=== PATIENT | female | born 1995 | race Caucasian/White ===

== ENCOUNTER → 2016-11-07 | Outpatient (REF) | payer OTHER | LOC: M LAB REF 16:49 | PROVIDERS: ATTEND Advanced Practice Midwife | DX: Z34.83 Encounter for supervision of other normal pregnancy, third trimester (principal) ==

== ENCOUNTER 2016-11-30 22:00 | Outpatient (CLI) | payer OTHER ==
[2016-11-30] MEDS ORDERED: PRENTAB55 PO (22:34)
== END 2016-11-30 22:45 | disposition home or self-care (01) ==
LOC: M LDO 22:00
PROVIDERS: ATTEND Advanced Practice Midwife
DX: O26.893 Other specified pregnancy related conditions, third trimester (principal); M54.30 Sciatica, unspecified side; Z3A.39 39 weeks gestation of pregnancy

== ENCOUNTER 2016-12-06 03:28 | Inpatient (IN) | payer OTHER ==
[~2016-12-06] VITALS: Ht 160 cm; Wt 80.0 kg
[2016-12-06] VITALS (27 sets, daily range): BP systolic 98–137; BP diastolic 53–91
[~2016-12-06 03:28] MED LIST: PRENTAB55 PO
[2016-12-06] MEDS ORDERED: LACTATED RINGER'S 1000 ML IV STA (04:12)
[2016-12-06] MEDS ORDERED: LR 1,000 ML IV SCH (04:12)
[2016-12-06 04:36] LABS: MEAN CORPUSCULAR HEMOGLOBIN 29.5 pg (27.0-33.0); MEAN CORPUSCULAR HGB CONC 34.5 g/dl (32.0-36.5); MEAN CORPUSCULAR VOLUME 85.5 fl (80.0-96.0); RED CELL DISTRIBUTION WIDTH 12.9 % (11.5-14.5)
[2016-12-06] MEDS ORDERED: FENTANYL 2MCG/ML ROPIVACAINE 0.2% NACL 250 ML CADD As Ordered ONE (04:53)
--- NOTE | 2016-12-06 05:22 | HPE ---
DATE OF ADMISSION: 12/06/2016 HISTORY: 21-year-old, (G) 1, para (P) 0 female at 40-5/7 weeks gestation by 9-week ultrasound, estimated date of confinement (EDC) of 12/01/2016, presents with regular contractions every 3-4 minutes for the last several hours. The contractions have increased in intensity. There is no vaginal bleeding or loss of fluid. COURSE: The patient initiated care at 11 weeks gestation on 05/02/2016. Her first trimester blood pressure was 120/70. Weight was 131 pounds. course was unremarkable. MEDICAL HISTORY: Unremarkable. SURGICAL HISTORY: Tonsils and adenoids. ALLERGIES: No known drug allergies. SOCIAL HISTORY: The father of the baby is involved. The patient denies cigarettes, alcohol or drug use. She lives in [place], [place]. FAMILY HISTORY: Noncontributory. PHYSICAL EXAMINATION: VITAL SIGNS: Blood pressure 130/78, weight 181 pounds. She appears uncomfortable. HEAD/NECK: Examination is normal. LUNGS: Clear to auscultation. HEART: Regular rate and rhythm. ABDOMEN: Nontender. Gravid. heart tones category 1. STERILE VAGINAL EXAMINATION: 3 cm, 100% effaced, -2 station anterior vertex, soft. Contractions every 3-6 minutes. EXTREMITIES: Nontender. LABORATORIES: Blood type is AB negative. Rubella immune. RPR nonreactive. Hepatitis B and C negative. HIV negative. Diabetes screen 125. Group B Streptococcus (GBS) negative on 11/07/2016. ASSESSMENT: 21-year-old (G) 1 at 40-5/7 weeks gestation presents in early labor. Patient is admitted on 12/06/2016.
[2016-12-06] MEDS ORDERED: OXYTOCIN DRIP 30 UNITS in APPROPRIATE DILUENT 1 EA IV SCH (06:30)
[2016-12-06] MEDS ORDERED: diphenhydrAMINE INJ 50MG/ML VIAL (J1200) IV PRN (07:15)
[2016-12-06] MEDS ORDERED: FENTANYL/ROPIVACAINE/NACL CADD 250 ML EPIDURAL SCH (07:15)
[2016-12-06] MEDS ORDERED: NALOXONE INJ 0.4 MG/1 ML VIAL (J2310) IV PRN (07:15)
[2016-12-06] MEDS ORDERED: LACTATED RINGER'S 1000 ML IV PRN (07:15)
[2016-12-06] MEDS ORDERED: ONDANSETRON 4MG/2ML VIAL (J2405) IV PRN ×2 (07:15→17:45)
[2016-12-06] MEDS ORDERED: EPIDURAL/PCA KEYS XX PRN (07:15)
[2016-12-06] MEDS ORDERED: EPIDURAL COMMENT XX SCH (07:15)
[2016-12-06] MEDS ORDERED: ePHEDrine SULFATE 25 MG/5 ML(5MG/ML) SYRINGE IV PRN (07:15)
[2016-12-06] MEDS ORDERED: REFRIGERATOR IV KEYS XX PRN (07:15)
[2016-12-06 17:27] LABS: CORD GAS ABE V -4.2; CORD GAS HCO3 V 20.4 MEQ/L; CORD GAS O2 SAT V 76.1 %; CORD GAS PCO2 V 36.5 mmHg; CORD GAS PH V 7.366 UNITS; CORD GAS PO2 V 33.4 mmHg; CORD GAS SBC V 20.5 MEQ/L; CORD GAS TCO2 V 21.6 MEQ/L
[2016-12-06 17:29] LABS: CORD GAS ABE A -7.1; CORD GAS HCO3 A 21.5 MEQ/L; CORD GAS O2 SAT A 18.1 %; CORD GAS PCO2 A 55.4 mmHg; CORD GAS PH A 7.207 UNITS; CORD GAS PO2 A 14.2 mmHg; CORD GAS TCO2 A 23.2 MEQ/L
[2016-12-06] MEDS ORDERED: RHOGAM 300 MCG (1500 IU) INJ (J2790) IM SCH (17:45)
[2016-12-06] MEDS ORDERED: MEASLES,MUMPS,RUBELLA VACCINE INJ (MMR-II) (90707) SC SCH (17:45)
[2016-12-06] MEDS ORDERED: DIBUCAINE 1% OINTMENT 30GM TOP PRN (17:45)
[2016-12-06] MEDS ORDERED: OXYTOCIN DRIP 30 UNITS in APPROPRIATE DILUENT 1 EA IV ONE (17:45)
[2016-12-06] MEDS ORDERED: ACETAMINOPHEN 500 MG TAB PO PRN (17:45)
[2016-12-06] MEDS ORDERED: DOCUSATE SODIUM 100 MG CAP PO PRN (17:45)
[2016-12-06] MEDS ORDERED: METHYLERGONOVINE MALEATE 0.2 MG TAB PO PRN (17:45)
[2016-12-06] MEDS: IBUPROFEN 800 MG TAB PO PRN (18:27)
[2016-12-07 05:35] VITALS: BP 116/71
[2016-12-07] MEDS: PRENATAL VITAMIN TAB PO SCH (07:31)
[2016-12-07] MEDS: IBUPROFEN 800 MG TAB PO PRN ×2 (07:32→17:41)
--- NOTE | 2016-12-07 09:02 | DN ---
DATE OF DELIVERY: 12/06/2016 PREDELIVERY DIAGNOSIS: Term , labor. POSTDELIVERY DIAGNOSIS: Term , labor. OPERATIVE PROCEDURE: Spontaneous vaginal delivery. CLOTH NEUTRALIZER: Maurice Plunkett MD ANESTHESIA: Epidural. ESTIMATED BLOOD LOSS: 300 mL. FINDINGS: 6 pound 14 ounce, 3114 gram female infant, Apgars 3, 5 and 5. Arterial blood gas 7.20. Base excess is -7.1. Venous blood gas 7.36. Base excess -4.2. DELIVERY SUMMARY: After 50 minute second phase, the patient had a spontaneous delivery of a 6 pound 14 ounce female infant under epidural anesthesia. There was an extremely tight nuchal cord which had to be clamped and cut on the perineum. The shoulders delivered spontaneously with ease. The was handed to the mother. The cord was doubly clamped and cut. Placenta delivered spontaneously and appeared to be intact. The patient received IV pitocin immediately after delivery of the placenta. A first degree perineal laceration was repaired with #3-0 chromic in the usual fashion. Sponge and needle counts were correct.
[2016-12-07 18:00] VITALS: BP 129/62
[2016-12-08 06:00] VITALS: BP 109/57
[2016-12-08] MEDS ORDERED: TYLE500T78 PO (08:06)
[2016-12-08] MEDS ORDERED: MOTR200T44 PO (08:06)
[2016-12-08] MEDS: PRENATAL VITAMIN TAB PO SCH (08:17)
[2016-12-08] MEDS: IBUPROFEN 800 MG TAB PO PRN (08:18)
== END 2016-12-08 12:50 | disposition home or self-care (01) | DRG 775 ==
LOC: M LDO 03:28 → M LDI 04:05 → M OBS 19:15
PROVIDERS: ADMIT Specialist; ATTEND Specialist
PROC: 10E0XZZ Delivery of Products of Conception, External Approach (ICD-10-PCS; principal; 2016-12-06)
PROC: 0HQ9XZZ Repair Perineum Skin, External Approach (ICD-10-PCS; 2016-12-06)
DX: O48.0 Post-term pregnancy (principal); Z37.0 Single live birth; Z3A.40 40 weeks gestation of pregnancy; O69.89X0 Labor and delivery complicated by other cord complications, not applicable or unspecified; O70.0 First degree perineal laceration during delivery

== ENCOUNTER → 2017-06-09 | Outpatient (CLI) | payer OTHER ==
[~2017-06-09] MED LIST changes: +MOTR200T44 PO; +TYLE500T78 PO
== END ==
LOC: M WUC 17:23
PROVIDERS: ATTEND Advanced Practice Midwife
DX: N91.1 Secondary amenorrhea (principal)

== ENCOUNTER → 2018-06-05 | Outpatient (CLI) | payer BC, OTHER ==
[2018-06-05 16:39] LABS: EOS # 0.2 10^3/uL (0.0-0.50); EOS % 4.1 % (0.0-3.0); HEMATOCRIT 41.9 % (36.0-47.0); HEMOGLOBIN 14.2 g/dl (12.0-15.5); IMMATURE GRANULOCYTE % 0.2 % (0-3.0); LYMPH # 1.9 10^3/uL (1.5-6.5); LYMPH % 46.9 % (24.0-44.0); MEAN CORPUSCULAR HEMOGLOBIN 29.5 pg (27.0-33.0); MEAN CORPUSCULAR HGB CONC 33.9 g/dl (32.0-36.5); MEAN CORPUSCULAR VOLUME 87.1 fl (80.0-96.0); MONO # 0.3 10^3/uL (0.0-0.8); MONO % 7.5 % (0.0-5.0); NEUTROPHILS # 1.7 10^3/uL (1.8-7.7); NEUTROPHILS % 40.3 % (36.0-66.0); PLATELET COUNT, AUTOMATED 271 10^3/uL (150-450); RED BLOOD COUNT 4.81 10^6/uL (4.00-5.40); RED CELL DISTRIBUTION WIDTH 12.3 % (11.5-14.5); WHITE BLOOD COUNT 4.1 10^3/uL (4.0-10.0)
[2018-06-05 17:13] LABS: ALBUMIN 4.1 GM/DL (3.2-5.2); ALBUMIN/GLOBULIN RATIO 1.24 (1.00-1.93); ALKALINE PHOSPHATASE 77 U/L (45-117); ALT/SGPT 55 U/L (12-78); ANION GAP 8 MEQ/L (8-16); AST/SGOT 28 U/L (7-37); BILIRUBIN,TOTAL 0.7 MG/DL (0.2-1.0); BLOOD UREA NITROGEN 12 MG/DL (7-18); CALCIUM LEVEL 8.7 MG/DL (8.5-10.1); CARBON DIOXIDE LEVEL 25 MEQ/L (21-32); CHLORIDE LEVEL 111 MEQ/L (98-107); CHOLESTEROL LEVEL 153 MG/DL (<200); CHOLESTEROL RISK RATIO 4.135 (<5); GLOMERULAR FILTRATION RATE > 60.0 (>60); GLUCOSE, FASTING 81 MG/DL (70-100); HDL CHOLESTEROL 37 MG/DL (>40); LDL CHOLESTEROL 92.4 MG/DL (<100); NON-HDL-C 116 MG/DL; POTASSIUM SERUM 3.9 MEQ/L (3.5-5.1); SODIUM LEVEL 144 MEQ/L (136-145); THYROID STIMULATING HORMONE 0.939 uIU/ML (0.358-3.740); TOTAL PROTEIN 7.4 GM/DL (6.4-8.2); TRIGLYCERIDES LEVEL 118 MG/DL (<150)
== END ==
LOC: M WUC 09:00
DX: R21 Rash and other nonspecific skin eruption (principal); Z13.6 Encounter for screening for cardiovascular disorders; R07.9 Chest pain, unspecified
CPT/HCPCS: 84443

== ENCOUNTER → 2018-07-13 | Outpatient (REF) | payer BC, OTHER | LOC: M LAB REF 18:50 | DX: L87.0 Keratosis follicularis et parafollicularis in cutem penetrans (principal) | CPT/HCPCS: 88300 ==

== ENCOUNTER → 2018-07-29 | Outpatient (REF) | payer OTHER | LOC: M SFHCPLAZ 14:01 | DX: R21 Rash and other nonspecific skin eruption (principal) ==

== ENCOUNTER 2018-11-23 11:56 | Emergency (ER) | payer BC, OTHER ==
[~2018-11-23] VITALS: Ht 160 cm; Wt 68.2 kg
[2018-11-23] MEDS ORDERED: KETOROLAC 30 MG/ML VIAL (J1885) IV ONE (12:30)
[2018-11-23] MEDS ORDERED: ONDANSETRON 4MG/2ML VIAL (J2405) IV ONE (12:30)
[2018-11-23 12:34] LABS: BASO % 0.3 % (0.0-1.0); EOS # 0.1 10^3/uL (0.0-0.50); HEMATOCRIT 43.9 % (36.0-47.0); HEMOGLOBIN 15.4 g/dl (12.0-15.5); LYMPH % 13.8 % (24.0-44.0); MEAN CORPUSCULAR HEMOGLOBIN 30.1 pg (27.0-33.0); MEAN CORPUSCULAR HGB CONC 35.1 g/dl (32.0-36.5); MEAN CORPUSCULAR VOLUME 85.7 fl (80.0-96.0); MONO # 0.5 10^3/uL (0.0-0.8); MONO % 7.1 % (0.0-5.0); NEUTROPHILS # 5.5 10^3/uL (1.8-7.7); NEUTROPHILS % 76.7 % (36.0-66.0); PLATELET COUNT, AUTOMATED 296 10^3/uL (150-450); RED BLOOD COUNT 5.12 10^6/uL (4.00-5.40); WHITE BLOOD COUNT 7.2 10^3/uL (4.0-10.0)
[2018-11-23 13:01] LABS: ALBUMIN 4.5 GM/DL (3.2-5.2); ALT/SGPT 46 U/L (12-78); BILIRUBIN,DIRECT 0.2 MG/DL (0.0-0.2); BILIRUBIN,TOTAL 0.9 MG/DL (0.2-1.0); BLOOD UREA NITROGEN 15 MG/DL (7-18); CALCIUM LEVEL 8.5 MG/DL (8.5-10.1); CARBON DIOXIDE LEVEL 26 MEQ/L (21-32); CHLORIDE LEVEL 105 MEQ/L (98-107); GLOMERULAR FILTRATION RATE > 60.0 (>60); GLUCOSE, FASTING 85 MG/DL (70-100); LIPASE 88 U/L (73-393); POTASSIUM SERUM 3.7 MEQ/L (3.5-5.1); SODIUM LEVEL 138 MEQ/L (136-145); TOTAL PROTEIN 7.7 GM/DL (6.4-8.2)
[2018-11-23] MEDS ORDERED: ONDA4TAB6 PO (14:12)
[2018-11-23] MEDS ORDERED: PEPC1TAB5 PO (14:12)
[2018-11-23] MEDS ORDERED: NS 500 ML IV ONE (14:15)
[2018-11-23] MEDS ORDERED: FAMOTIDINE 20 MG TAB PO ONE (14:15)
[2018-11-23 15:25] VITALS: BP 99/62
== END 2018-11-23 15:32 | disposition home or self-care (01) ==
LOC: M ED 11:56
DX: R19.7 Diarrhea, unspecified (principal); R10.9 Unspecified abdominal pain
CPT/HCPCS: 80048; 80076; 81001; 81025; 83690; 85025; 99284; J1885; J2405

== ENCOUNTER → 2019-05-12 | Outpatient (REF) | payer OTHER ==
[~2019-05-12] MED LIST changes: +ONDA4TAB6 PO; +PEPC1TAB5 PO
[2019-05-12 13:06] LABS: HEMATOCRIT 39.7 % (36.0-47.0); MEAN CORPUSCULAR HEMOGLOBIN 30.4 pg (27.0-33.0); MEAN CORPUSCULAR HGB CONC 35.3 g/dl (32.0-36.5); MEAN CORPUSCULAR VOLUME 86.1 fl (80.0-96.0); PLATELET COUNT, AUTOMATED 316 10^3/uL (150-450); RED BLOOD COUNT 4.61 10^6/uL (4.00-5.40)
[2019-05-12 13:16] LABS: HCG, SERUM QUANTITATIVE 90 MIU/ML
[2019-05-13 10:08] LABS: RUBELLA IgG QUALITATIVE IMMUNE (IMMUNE)
[2019-05-13 10:38] LABS: HEPATITIS C VIRUS ABY INDEX 0.1 INDEX (<0.8); HIV 1&2 SCREEN CENTAUR NEGATIVE (NEGATIVE)
== END ==
LOC: M LAB REF 12:39
PROVIDERS: ATTEND Obstetrics & Gynecology
DX: Z32.01 Encounter for pregnancy test, result positive (principal); O36.80X0 Pregnancy with inconclusive fetal viability, not applicable or unspecified

== ENCOUNTER → 2019-05-19 | Outpatient (REF) | payer OTHER | LOC: M LAB REF 17:24 | PROVIDERS: ATTEND Nurse Practitioner Women's Health | DX: O02.1 Missed abortion (principal) ==

== ENCOUNTER → 2020-07-30 | Outpatient (REF) | payer OTHER ==
[2020-07-31 12:34] LABS: BASO % 0.5 % (0.0-1.0); EOS # 0.4 10^3/uL (0.0-0.5); EOS % 5.7 % (0.0-3.0); HEMATOCRIT 40.5 % (36.0-47.0); HEMOGLOBIN 13.8 g/dl (12.0-15.5); LYMPH # 2.4 10^3/uL (1.5-5.0); LYMPH % 31.8 % (24.0-44.0); MEAN CORPUSCULAR HEMOGLOBIN 30.1 pg (27.0-33.0); MEAN CORPUSCULAR HGB CONC 34.1 g/dl (32.0-36.5); MEAN CORPUSCULAR VOLUME 88.4 fl (80.0-96.0); MONO # 0.5 10^3/uL (0.0-0.8); MONO % 6.7 % (0.0-5.0); NEUTROPHILS # 4.1 10^3/uL (1.5-8.5); PLATELET COUNT, AUTOMATED 337 10^3/uL (150-450); RED BLOOD COUNT 4.58 10^6/uL (4.00-5.40); WHITE BLOOD COUNT 7.4 10^3/uL (4.0-10.0)
[2020-07-31 12:39] LABS: ALT/SGPT 32 U/L (12-78); BILIRUBIN,TOTAL 0.4 MG/DL (0.2-1.0); BLOOD UREA NITROGEN 11 MG/DL (7-18); CALCIUM LEVEL 9.2 MG/DL (8.5-10.1); CARBON DIOXIDE LEVEL 27 MEQ/L (21-32); CHLORIDE LEVEL 105 MEQ/L (98-107); CREATININE FOR GFR 0.68 MG/DL (0.55-1.30); GLOMERULAR FILTRATION RATE > 60.0 (>60); GLUCOSE, FASTING 98 MG/DL (70-100); POTASSIUM SERUM 3.8 MEQ/L (3.5-5.1); SODIUM LEVEL 139 MEQ/L (136-145); TOTAL PROTEIN 7.6 GM/DL (6.4-8.2)
[2020-07-31 12:51] LABS: HCG, SERUM QUALITATIVE NEGATIVE (NEGATIVE)
== END ==
LOC: M SFHCCLAY 15:27
PROVIDERS: ATTEND Physician Assistant
DX: N91.2 Amenorrhea, unspecified (principal); R63.5 Abnormal weight gain

== ENCOUNTER 2020-09-26 15:55 | Emergency (ER) | payer BC, OTHER ==
[~2020-09-26] VITALS: Ht 160 cm; Wt 72.9 kg
[2020-09-26 16:54] LABS: BLOOD UREA NITROGEN 14 MG/DL (7-18); CALCIUM LEVEL 9.6 MG/DL (8.5-10.1); CARBON DIOXIDE LEVEL 28 MEQ/L (21-32); CHLORIDE LEVEL 106 MEQ/L (98-107); CREATININE FOR GFR 0.61 MG/DL (0.55-1.30); GLOMERULAR FILTRATION RATE > 60.0 (>60); GLUCOSE, FASTING 89 MG/DL (70-100); POTASSIUM SERUM 3.8 MEQ/L (3.5-5.1); SODIUM LEVEL 139 MEQ/L (136-145)
[2020-09-26 17:18] LABS: HCG, SERUM QUALITATIVE NEGATIVE (NEGATIVE)
[2020-09-26] MEDS ORDERED: KETOROLAC 60MG 2ML VIAL IM ONE (17:30)
--- NOTE | 2020-09-26 18:21 | REP ---
INDICATION: CP COMPARISON: 06/05/2018. TECHNIQUE: PA/Lateral FINDINGS: Lungs: Clear, no infiltrate. Heart: Normal in size. Mediastinum: Mediastinal silhouette unremarkable. Pleural angles: Unremarkable.. Bones and soft tissues: Unremarkable. IMPRESSION: No acute pulmonary disease. <Electronically signed by Ari Rueda > 09/26/20 [id number]
[2020-09-26 18:30] VITALS: BP 104/68
--- NOTE | 2020-09-27 13:26 | ECGEPIP ---
[facility] - ED Test Date: 2020-09-26 Pat Name: SUSIE COTTON Department: Room: - Gender: Female Procurement Consultant: jemal : 1995 Requested By: Kim Sierra Order Number: [id number] Reading MD: Steffen Masters Measurements Intervals [place] Rate: 75 P: 44 VT: 145 QRS: 72 QRSD: 97 T: 65 QT: 367 QTc: 410 Interpretive Statements SINUS RHYTHM BENIGN EARLY REPOLARIZATION SIMILAR TO 09/27/16 Electronically Signed on 09-27-2020 13:25:57 EST by Steffen Masters
== END 2020-09-26 18:37 | disposition home or self-care (01) ==
LOC: M ED 15:55
DX: R07.9 Chest pain, unspecified (principal)
CPT/HCPCS: 71046; 80048; 84703; 85379; 85652; 93005; 96372; 99284; J1885

== ENCOUNTER → 2020-10-22 | Outpatient (CLI) | payer BC, OTHER ==
--- NOTE | 2020-10-22 16:23 | REP ---
INDICATION: PELVIC AND PERINEAL PAIN COMPARISON: None. TECHNIQUE: Transabdominal pelvic ultrasound followed by transvaginal examination for better evaluation of the endometrium and adnexa with color Doppler evaluation of the ovaries. FINDINGS: Bladder is unremarkable and measures 10.3 x 12.2 x 8.4 cm. Normal anteverted uterus measures 8.2 x 3.5 x 4.7 cm. The endometrial complex measures 6.0 mm thickness. 3 mm echogenic focus within the endometrium is nonspecific and may represent small chronic calcification or polyp. Bilateral ovaries are normal in appearance and vascularity without evidence for torsion. Right ovary measures 2.7 x 2.0 x 1.9 cm; R I = 0.37. Left ovary measures 2.8 x 1.1 x 1.5 cm; R I = 0.44. No pelvic fluid or adnexal mass lesion. IMPRESSION: 3 mm nonspecific echogenic focus within the endometrium. Otherwise normal pelvic ultrasound. <Electronically signed by Lavon Pierce > 10/22/20 [id number]
== END ==
LOC: M RAD 15:28
PROVIDERS: ATTEND Obstetrics & Gynecology
DX: R10.2 Pelvic and perineal pain (principal)

== ENCOUNTER → 2020-12-03 | Outpatient (REF) | payer OTHER ==
[2020-12-03 18:07] LABS: ALBUMIN 4.4 GM/DL (3.2-5.2); ALT/SGPT 51 U/L (12-78); BILIRUBIN,TOTAL 0.3 MG/DL (0.2-1.0); BLOOD UREA NITROGEN 15 MG/DL (7-18); CALCIUM LEVEL 8.8 MG/DL (8.5-10.1); CARBON DIOXIDE LEVEL 29 MEQ/L (21-32); CHLORIDE LEVEL 104 MEQ/L (98-107); CREATININE FOR GFR 0.65 MG/DL (0.55-1.30); GLOMERULAR FILTRATION RATE > 60.0 (>60); GLUCOSE, FASTING 91 MG/DL (70-100); SODIUM LEVEL 140 MEQ/L (136-145); TOTAL PROTEIN 7.7 GM/DL (6.4-8.2); VITAMIN B12 LEVEL 445 PG/ML (247-911)
== END ==
LOC: M SFHCCLAY 13:29
PROVIDERS: ATTEND Physician Assistant
DX: R20.0 Anesthesia of skin (principal)

== ENCOUNTER → 2020-12-19 | Outpatient (CLI) | payer BC ==
--- NOTE | 2020-12-19 15:21 | REP ---
INDICATION: M54.5 LOW [place] PAIN W/RADIATION LEFT COMPARISON: None. TECHNIQUE: AP, lateral, bilateral oblique, and coned-down views of the lumbar spine. FINDINGS: Alignment and lordosis maintained. Vertebral bodies are intact. Disc spaces are relatively normal/age-appropriate. No acute fracture/compression injury or subluxation. No obvious spondylolysis or spondylolisthesis.. IMPRESSION: Normal Lumbosacral Spine series. <Electronically signed by Lavon Pierce > 12/19/20 [id number]
== END ==
LOC: M CLY 14:57
PROVIDERS: ATTEND Physician Assistant
DX: M54.42 Lumbago with sciatica, left side (principal)

== ENCOUNTER → 2021-01-03 | Outpatient (REF) | payer OTHER ==
[2021-01-03 17:35] LABS: HCG, SERUM QUALITATIVE NEGATIVE (NEGATIVE)
[2021-01-03 17:41] LABS: FREE T4 0.96 NG/DL (0.76-1.46)
== END ==
LOC: M PLALAB 14:09
PROVIDERS: ATTEND Advanced Practice Midwife
DX: N91.2 Amenorrhea, unspecified (principal)

== ENCOUNTER → 2021-03-21 | Outpatient (REF) | payer OTHER ==
[2021-03-21 15:59] LABS: HCG, SERUM QUALITATIVE NEGATIVE (NEGATIVE)
[2021-03-21 16:12] LABS: FREE T4 0.89 NG/DL (0.76-1.46); THYROID STIMULATING HORMONE 0.993 uIU/ML (0.358-3.740)
== END ==
LOC: M PLALAB 11:39
PROVIDERS: ATTEND Advanced Practice Midwife
DX: Z31.9 Encounter for procreative management, unspecified (principal); N92.6 Irregular menstruation, unspecified

== ENCOUNTER → 2021-04-01 | Outpatient (REF) | payer OTHER | LOC: M SFHCCAPE 15:47 | PROVIDERS: ATTEND Physician Assistant | DX: M54.5 Low back pain (principal) ==

== ENCOUNTER → 2021-04-04 | Outpatient (CLI) | payer OTHER ==
[2021-04-04 21:59] LABS: FOLLICLE STIMULATING HORMONE 5.2 mIU/mL; LUTEINIZING HORMONE 7.7 mIU/mL
== END ==
LOC: M WUC 15:45
PROVIDERS: ATTEND Advanced Practice Midwife
DX: Z31.9 Encounter for procreative management, unspecified (principal)

== ENCOUNTER → 2021-04-12 | Outpatient (REF) | payer OTHER ==
[2021-04-12 12:22] LABS: PROGESTERONE 0.46 NG/ML; PROLACTIN 6.6 NG/ML
== END ==
LOC: M PLALAB 07:05
PROVIDERS: ATTEND Advanced Practice Midwife
DX: Z31.9 Encounter for procreative management, unspecified (principal)

== ENCOUNTER → 2021-05-29 | Outpatient (CLI) | payer BC, OTHER ==
[~2021-05-29] MED LIST changes: +ISOVUE-370 76% 100ML VIAL As Ordered ONE
--- NOTE | 2021-05-29 16:36 | REP ---
INDICATION: INFERTILITY. COMPARISON: None. TECHNIQUE: The endometrium was cannulated and contrast was injected by the attending roof cement and paint maker Dr. Bojra. Fluoroscopic spot films were acquired by Luz Maria Recinos [facility], under the direct supervision of Dr. Rueda. Images reviewed prior to dictation with Dr. Rueda. FINDINGS: Fluoroscopy spot radiographs document filling of a normal endometrial cavity. There is a mild arcuate appearance to the uterus. There is normal isthmic and ampullary fallopian tube opacification, and bilateral tubal patency was documented. IMPRESSION: Accurate uterus with bilateral tubal patency documented. 0.9 minutes of fluoroscopy time was utilized for this procedure. Some fluoroscopic images are performed with last image hold technology. These images require no additional radiation. <Electronically signed by Luz Maria Recinos > 05/29/21 [id number] <Electronically signed by Ari Rueda > 05/29/21 [id number]
== END ==
LOC: M RADPRO 11:45
PROVIDERS: ATTEND Obstetrics & Gynecology
DX: N97.9 Female infertility, unspecified (principal)
CPT/HCPCS: 58340; 74740; Q9967

== ENCOUNTER → 2021-11-04 | Outpatient (REF) | payer BC, OTHER ==
[~2021-11-04] MED LIST changes: -ISOVUE-370 76% 100ML VIAL As Ordered ONE
[2021-11-04 13:38] LABS: HEMATOCRIT 43.8 % (36.0-47.0); HEMOGLOBIN 14.7 g/dl (12.0-15.5); MEAN CORPUSCULAR HGB CONC 33.6 g/dl (32.0-36.5); MEAN CORPUSCULAR VOLUME 89.4 fl (80.0-96.0); PLATELET COUNT, AUTOMATED 296 10^3/uL (150-450); WHITE BLOOD COUNT 7.6 10^3/uL (4.0-10.0)
[2021-11-04 14:20] LABS: HCG, SERUM QUANTITATIVE 92 MIU/ML; PROGESTERONE 9.76 NG/ML
[2021-11-04 14:30] LABS: HEPATITIS B SURFACE ANTIGEN NEGATIVE (NEGATIVE)
[2021-11-04 14:57] LABS: HEPATITIS C VIRUS ABY INDEX < 0.0 INDEX (<0.8)
[2021-11-04 14:58] LABS: HIV 1&2 SCREEN CENTAUR NEGATIVE (NEGATIVE)
== END ==
LOC: M LAB REF 12:18
PROVIDERS: ATTEND Advanced Practice Midwife
DX: O36.80X0 Pregnancy with inconclusive fetal viability, not applicable or unspecified (principal); Z32.01 Encounter for pregnancy test, result positive

== ENCOUNTER → 2021-12-05 | Outpatient (REF) | payer BC, OTHER | LOC: M LAB REF 16:18 | PROVIDERS: ATTEND Obstetrics & Gynecology | DX: Z34.81 Encounter for supervision of other normal pregnancy, first trimester (principal); Z36.89 Encounter for other specified antenatal screening ==

== ENCOUNTER → 2022-01-28 | Outpatient (REF) | payer BC, OTHER | LOC: M LAB REF 17:39 | PROVIDERS: ATTEND Obstetrics & Gynecology | DX: R30.0 Dysuria (principal) ==

== ENCOUNTER → 2022-04-23 | Outpatient (CLI) | payer BC, OTHER ==
[2022-04-23 10:22] LABS: HEMATOCRIT 35.1 % (36.0-47.0); HEMOGLOBIN 11.8 g/dl (12.0-15.5); MEAN CORPUSCULAR HEMOGLOBIN 30.3 pg (27.0-33.0); MEAN CORPUSCULAR HGB CONC 33.6 g/dl (32.0-36.5); MEAN CORPUSCULAR VOLUME 90.2 fl (80.0-96.0); PLATELET COUNT, AUTOMATED 286 10^3/uL (150-450); RED BLOOD COUNT 3.89 10^6/uL (4.00-5.40); WHITE BLOOD COUNT 8.3 10^3/uL (4.0-10.0)
== END ==
LOC: M LAB 07:43
PROVIDERS: ATTEND Obstetrics & Gynecology
DX: Z34.82 Encounter for supervision of other normal pregnancy, second trimester (principal)

== ENCOUNTER → 2022-05-14 | Outpatient (CLI) | payer BC, OTHER | LOC: M LAB 07:19 | PROVIDERS: ATTEND Obstetrics & Gynecology | DX: O99.810 Abnormal glucose complicating pregnancy (principal) ==

== ENCOUNTER 2022-05-23 09:28 | Outpatient (CLI) | payer BC, OTHER ==
[~2022-05-23] VITALS: Ht 160 cm; Wt 78.6 kg
[2022-05-23 09:47] VITALS: BP 94/66
[2022-05-23 15:32] LABS: BACTERIA, URINE SMALL AMOUNT; HYALINE CAST, URINE NONE SEEN /lpf (0-1); RBC, URINE NONE SEEN /hpf (0-3); SQUAMOUS EPITHELIAL CELL URINE NONE SEEN /hpf (SMALL AMT)
== END 2022-05-23 14:20 | disposition home or self-care (01) ==
LOC: M LDO 09:28
PROVIDERS: ATTEND Obstetrics & Gynecology
DX: O26.853 Spotting complicating pregnancy, third trimester (principal); O26.893 Other specified pregnancy related conditions, third trimester; R25.2 Cramp and spasm; R10.2 Pelvic and perineal pain; Z3A.32 32 weeks gestation of pregnancy
CPT/HCPCS: 59025; 81000; 87086; G0378; G0463

== ENCOUNTER → 2022-06-10 | Outpatient (REF) | payer BC, OTHER | LOC: M LAB REF 17:07 | PROVIDERS: ATTEND Obstetrics & Gynecology | DX: Z34.83 Encounter for supervision of other normal pregnancy, third trimester (principal) ==

== ENCOUNTER 2022-07-15 19:19 | Inpatient (IN) | payer BC, OTHER ==
[2022-07-15] VITALS (15 sets, daily range): BP systolic 99–135; BP diastolic 55–81
[~2022-07-15] VITALS: Ht 160 cm; Wt 82.4 kg
[2022-07-15] MEDS ORDERED: HOME MED LIST COMPLETE! XX SCH (19:55)
[2022-07-15] MEDS ORDERED: PRENTAB9 PO (19:56)
[2022-07-15] MEDS ORDERED: TUMS500C PO (19:57)
[2022-07-15 20:42] LABS: HEMATOCRIT 33.5 % (36.0-47.0); MEAN CORPUSCULAR HEMOGLOBIN 27.6 pg (27.0-33.0); MEAN CORPUSCULAR HGB CONC 32.8 g/dl (32.0-36.5); PLATELET COUNT, AUTOMATED 295 10^3/uL (150-450); RED BLOOD COUNT 3.99 10^6/uL (4.00-5.40); WHITE BLOOD COUNT 12.4 10^3/uL (4.0-10.0)
[2022-07-15] MEDS ORDERED: LIDOCAINE 1% MDV 20ML VIAL INFIL PRN (20:55)
[2022-07-15] MEDS ORDERED: TRANEXAMIC ACID INJection 1,000 MG in NS 100 ML IV PRN (20:55)
[2022-07-15] MEDS ORDERED: OXYTOCIN DRIP 30 UNITS in IV 1 EA IV PRN ×4 (20:55)
[2022-07-15] MEDS ORDERED: METHYLERGONOVINE MALEATE 0.2 MG/ML VIAL (J2210) IM PRN (20:55)
[2022-07-15] MEDS ORDERED: FENTANYL/ROPIVACAINE/NACL BAG 100 ML EPIDURAL SCH (21:30)
[2022-07-15] MEDS ORDERED: diphenhydrAMINE 50MG/ML VIAL (J1200) IV PRN (21:30)
[2022-07-15] MEDS ORDERED: ONDANSETRON 4MG 2ML VIAL IV PRN (21:30)
[2022-07-15] MEDS ORDERED: LR 500 ML IV PRN (21:30)
[2022-07-15] MEDS ORDERED: NALOXONE INJ 0.4MG/1ML VIAL (J2310 PER 1MG) IV PRN (21:30)
[2022-07-15] MEDS ORDERED: ePHEDrine SULFATE 25 MG/5 ML(5MG/ML) SYRINGE IVP PRN (21:30)
[2022-07-15] MEDS ORDERED: EPIDURAL/PCA KEYS XX PRN (21:30)
[2022-07-16] VITALS (15 sets, daily range): BP systolic 91–158; BP diastolic 51–108
[2022-07-16] MEDS ORDERED: OXYTOCIN DRIP 30 UNITS in IV 1 EA IV SCH (03:00)
[2022-07-16] MEDS ORDERED: RHOGAM 300 MCG (1500 IU) INJ (J2790) IM SCH (03:00)
[2022-07-16] MEDS ORDERED: DOCUSATE SODIUM 100MG CAPSULE PO PRN (03:00)
[2022-07-16] MEDS ORDERED: ACETAMINOPHEN 500 MG TAB PO PRN (03:00)
[2022-07-16] MEDS ORDERED: MOM 30ML SUSPENSION UDC PO PRN (03:00)
[2022-07-16] MEDS ORDERED: METHYLERGONOVINE MALEATE 0.2 MG TAB PO PRN (03:00)
[2022-07-16] MEDS ORDERED: DIBUCAINE 1% OINTMENT 30GM TOP PRN (03:00)
[2022-07-16] MEDS ORDERED: ANUSOL HC CREAM 30GM TOP PRN (03:00)
[2022-07-16] MEDS ORDERED: IBUPROFEN 600MG TAB PO PRN (03:00)
[2022-07-16] MEDS ORDERED: ACETAMINOPHEN TAB 650MG DOSE (2X325MG) PO PRN (03:00)
[2022-07-16] MEDS: PRENATAL VITAMINS CHEWABLE TABLET PO SCH (08:05)
[2022-07-16] MEDS: IBUPROFEN 800 MG TAB PO PRN (08:05)
[2022-07-17 06:00] VITALS: BP 100/65
[2022-07-17] MEDS: IBUPROFEN 800 MG TAB PO PRN (06:36)
[2022-07-17] MEDS: PRENATAL VITAMINS CHEWABLE TABLET PO SCH (08:00)
[2022-07-17] MEDS ORDERED: ACET-683 PO (11:55)
[2022-07-17] MEDS ORDERED: IBUP80TA PO (11:55)
[2022-07-18] MEDS ORDERED: MEASLES,MUMPS,RUBELLA VACCINE INJ (MMR-II) (90707) SC.IMMUN ONE (09:00)
== END 2022-07-17 12:39 | disposition home or self-care (01) | DRG 560 ==
LOC: M LDO 19:19 → M LDI 20:19 → M OBS 07-16 04:44
PROVIDERS: ADMIT Obstetrics & Gynecology; ATTEND Obstetrics & Gynecology
PROC: 10E0XZZ Delivery of Products of Conception, External Approach (ICD-10-PCS; principal; 2022-07-16)
DX: O48.0 Post-term pregnancy (principal); Z3A.40 40 weeks gestation of pregnancy; Z37.0 Single live birth; O77.0 Labor and delivery complicated by meconium in amniotic fluid

== ENCOUNTER → 2022-11-25 | Outpatient (REF) | payer BC, OTHER ==
[~2022-11-25] MED LIST changes: +ACET-683 PO; +IBUP80TA PO; +PRENTAB9 PO; +TUMS500C PO
[2022-11-25 12:50] LABS: HEMATOCRIT 38.4 % (36.0-47.0); HEMOGLOBIN 13.3 g/dl (12.0-15.5); MEAN CORPUSCULAR HEMOGLOBIN 29.9 pg (27.0-33.0); MEAN CORPUSCULAR HGB CONC 34.6 g/dl (32.0-36.5); MEAN CORPUSCULAR VOLUME 86.3 fl (80.0-96.0); PLATELET COUNT, AUTOMATED 273 10^3/uL (150-450); RED BLOOD COUNT 4.45 10^6/uL (4.00-5.40); WHITE BLOOD COUNT 5.5 10^3/uL (4.0-10.0)
[2022-11-25 13:40] LABS: HEPATITIS B SURFACE ANTIGEN NEGATIVE (NEGATIVE)
[2022-11-25 13:53] LABS: HIV 1&2 SCREEN CENTAUR NEGATIVE (NEGATIVE)
== END ==
LOC: M LAB REF 11:24
PROVIDERS: ATTEND Obstetrics & Gynecology
DX: O36.80X0 Pregnancy with inconclusive fetal viability, not applicable or unspecified (principal); Z32.01 Encounter for pregnancy test, result positive

== ENCOUNTER → 2022-12-10 | Outpatient (CLI) | payer BC, OTHER | LOC: M WHC 14:47 | PROVIDERS: ATTEND Obstetrics & Gynecology | DX: O36.80X0 Pregnancy with inconclusive fetal viability, not applicable or unspecified (principal); Z3A.01 Less than 8 weeks gestation of pregnancy; O20.8 Other hemorrhage in early pregnancy ==

== ENCOUNTER → 2022-12-26 | Outpatient (REF) | payer BC, OTHER | LOC: M LAB REF 12:05 | PROVIDERS: ATTEND Obstetrics & Gynecology | DX: O03.4 Incomplete spontaneous abortion without complication (principal) ==

== ENCOUNTER → 2023-01-02 | Outpatient (REF) | payer OTHER, BC | LOC: M LAB REF 12:13 | PROVIDERS: ATTEND Obstetrics & Gynecology | DX: O03.4 Incomplete spontaneous abortion without complication (principal) ==

== ENCOUNTER → 2023-01-09 | Outpatient (REF) | payer OTHER, BC | LOC: M LAB REF 15:17 | PROVIDERS: ATTEND Obstetrics & Gynecology | DX: O03.4 Incomplete spontaneous abortion without complication (principal) ==

== ENCOUNTER → 2023-03-23 | Outpatient (REF) | payer OTHER, BC | LOC: M LAB REF 12:18 | PROVIDERS: ATTEND Obstetrics & Gynecology | DX: N91.2 Amenorrhea, unspecified (principal) ==

== ENCOUNTER → 2023-04-07 | Outpatient (CLI) | payer BC, OTHER ==
[2023-04-07 14:19] LABS: FOLLICLE STIMULATING HORMONE 4.4 mIU/ML; FREE T4 1.17 NG/DL (0.89-1.76); LUTEINIZING HORMONE 13.9 mIU/ML; THYROID STIMULATING HORMONE 1.31 uIU/ML (0.55-4.78)
== END ==
LOC: M RAD 12:33
PROVIDERS: ATTEND Obstetrics & Gynecology
DX: N91.2 Amenorrhea, unspecified (principal)

== ENCOUNTER → 2023-05-12 | Outpatient (CLI) | payer BC | LOC: M CLY 14:12 | PROVIDERS: ATTEND Physician Assistant | DX: J34.89 Other specified disorders of nose and nasal sinuses (principal); S09.93XA Unspecified injury of face, initial encounter; X58.XXXA Exposure to other specified factors, initial encounter; Y92.9 Unspecified place or not applicable; Y93.9 Activity, unspecified; Y99.9 Unspecified external cause status ==

== ENCOUNTER → 2023-08-18 | Outpatient (REF) | payer BC ==
[2023-08-18 18:11] LABS: HEMATOCRIT 41.4 % (36.0-47.0); HEMOGLOBIN 14.2 g/dl (12.0-15.5); MEAN CORPUSCULAR HEMOGLOBIN 30.3 pg (27.0-33.0); MEAN CORPUSCULAR HGB CONC 34.3 g/dl (32.0-36.5); MEAN CORPUSCULAR VOLUME 88.5 fl (80.0-96.0); PLATELET COUNT, AUTOMATED 287 10^3/uL (150-450); RED BLOOD COUNT 4.68 10^6/uL (4.00-5.40); WHITE BLOOD COUNT 5.2 10^3/uL (4.0-10.0)
[2023-08-18 18:32] LABS: HIV 1&2 SCREEN NEGATIVE (NEGATIVE)
[2023-08-18 18:40] LABS: HEPATITIS C VIRUS ABY INDEX 0.05 INDEX (<0.8)
== END ==
LOC: M LAB REF 16:19
PROVIDERS: ATTEND Advanced Practice Midwife
DX: O36.80X0 Pregnancy with inconclusive fetal viability, not applicable or unspecified (principal); Z32.01 Encounter for pregnancy test, result positive; Z3A.00 Weeks of gestation of pregnancy not specified

== ENCOUNTER → 2023-08-20 | Outpatient (REF) | payer OTHER | LOC: M LAB REF 10:17 | PROVIDERS: ATTEND Advanced Practice Midwife | DX: O36.80X0 Pregnancy with inconclusive fetal viability, not applicable or unspecified (principal); Z3A.00 Weeks of gestation of pregnancy not specified ==

== ENCOUNTER → 2023-08-21 | Outpatient (CLI) | payer BC, OTHER | LOC: M WHC 13:33 | PROVIDERS: ATTEND Advanced Practice Midwife | DX: O36.80X0 Pregnancy with inconclusive fetal viability, not applicable or unspecified (principal); Z32.01 Encounter for pregnancy test, result positive; Z3A.01 Less than 8 weeks gestation of pregnancy ==

== ENCOUNTER → 2023-08-22 | Outpatient (CLI) | payer BC, OTHER | LOC: M LAB 10:08 | PROVIDERS: ATTEND Advanced Practice Midwife | DX: O36.80X0 Pregnancy with inconclusive fetal viability, not applicable or unspecified (principal); Z3A.00 Weeks of gestation of pregnancy not specified ==

== ENCOUNTER → 2023-08-26 | Outpatient (REF) | payer OTHER, BC | LOC: M LAB REF 12:06 | PROVIDERS: ATTEND Obstetrics & Gynecology | DX: O36.80X0 Pregnancy with inconclusive fetal viability, not applicable or unspecified (principal) | CPT/HCPCS: 84702; 86850; 86900; 86901; J2790 ==

== ENCOUNTER → 2023-09-07 | Outpatient (REF) | payer OTHER, BC | LOC: M LAB REF 11:41 | PROVIDERS: ATTEND Obstetrics & Gynecology | DX: O02.1 Missed abortion (principal) ==

== ENCOUNTER → 2023-09-14 | Outpatient (REF) | payer OTHER, BC | LOC: M LAB REF 16:23 | PROVIDERS: ATTEND Obstetrics & Gynecology | DX: O02.1 Missed abortion (principal) ==

== ENCOUNTER → 2024-03-15 | Outpatient (REF) | payer OTHER, BC ==
[~2024-03-15] MED LIST changes: +ONDA-282 PO; -ONDA4TAB6 PO
[2024-03-15 13:03] LABS: HCG, SERUM QUANTITATIVE 227.4 MIU/ML (<4.2)
[2024-03-15 13:04] LABS: HEMATOCRIT 39.7 % (36.0-47.0); HEMOGLOBIN 13.8 g/dl (12.0-15.5); MEAN CORPUSCULAR HEMOGLOBIN 30.5 pg (27.0-33.0); MEAN CORPUSCULAR HGB CONC 34.8 g/dl (32.0-36.5); MEAN CORPUSCULAR VOLUME 87.8 fl (80.0-96.0); PLATELET COUNT, AUTOMATED 274 10^3/uL (150-450); RED BLOOD COUNT 4.52 10^6/uL (4.00-5.40); WHITE BLOOD COUNT 6.8 10^3/uL (4.0-10.0)
[2024-03-15 13:31] LABS: HIV 1&2 SCREEN NEGATIVE (NEGATIVE)
[2024-03-15 13:38] LABS: HEPATITIS C VIRUS ABY INDEX 0.05 INDEX (<0.8)
== END ==
LOC: M LAB REF 11:47
PROVIDERS: ATTEND Obstetrics & Gynecology
DX: O36.80X0 Pregnancy with inconclusive fetal viability, not applicable or unspecified (principal); Z32.01 Encounter for pregnancy test, result positive

== ENCOUNTER → 2024-03-17 | Outpatient (REF) | payer OTHER, BC | LOC: M LAB REF 16:48 | PROVIDERS: ATTEND Obstetrics & Gynecology | DX: O36.80X0 Pregnancy with inconclusive fetal viability, not applicable or unspecified (principal); Z3A.00 Weeks of gestation of pregnancy not specified ==

== ENCOUNTER → 2024-03-21 | Outpatient (REF) | payer OTHER, BC | LOC: M LAB REF 17:24 | PROVIDERS: ATTEND Obstetrics & Gynecology | DX: O36.80X0 Pregnancy with inconclusive fetal viability, not applicable or unspecified (principal); Z36.89 Encounter for other specified antenatal screening; Z3A.00 Weeks of gestation of pregnancy not specified ==

== ENCOUNTER → 2024-04-04 | Outpatient (CLI) | payer BC | LOC: M RAD 06:39 | PROVIDERS: ATTEND Obstetrics & Gynecology | DX: O36.80X0 Pregnancy with inconclusive fetal viability, not applicable or unspecified (principal); Z3A.01 Less than 8 weeks gestation of pregnancy ==

== ENCOUNTER → 2024-06-29 | Outpatient (CLI) | payer BC | LOC: M RAD 07:53 | PROVIDERS: ATTEND Obstetrics & Gynecology | DX: O44.42 Low lying placenta NOS or without hemorrhage, second trimester (principal); Z3A.20 20 weeks gestation of pregnancy ==

== ENCOUNTER → 2024-08-02 | Outpatient (CLI) | payer BC | LOC: M RAD 07:06 | PROVIDERS: ATTEND Obstetrics & Gynecology | DX: O32.1XX0 Maternal care for breech presentation, not applicable or unspecified (principal); Z3A.25 25 weeks gestation of pregnancy ==

== ENCOUNTER → 2024-08-17 | Outpatient (CLI) | payer BC ==
[2024-08-17 09:47] LABS: HEMATOCRIT 33.6 % (36.0-47.0); HEMOGLOBIN 11.2 g/dl (12.0-15.5); MEAN CORPUSCULAR HEMOGLOBIN 29.4 pg (27.0-33.0); MEAN CORPUSCULAR HGB CONC 33.3 g/dl (32.0-36.5); MEAN CORPUSCULAR VOLUME 88.2 fl (80.0-96.0); PLATELET COUNT, AUTOMATED 266 10^3/uL (150-450); RED BLOOD COUNT 3.81 10^6/uL (4.00-5.40); WHITE BLOOD COUNT 9.4 10^3/uL (4.0-10.0)
== END ==
LOC: M LAB 08:03
PROVIDERS: ATTEND Obstetrics & Gynecology
DX: Z34.82 Encounter for supervision of other normal pregnancy, second trimester (principal)

== ENCOUNTER → 2024-08-23 | Outpatient (CLI) | payer BC | LOC: M LAB 06:34 | PROVIDERS: ATTEND Obstetrics & Gynecology | DX: O99.810 Abnormal glucose complicating pregnancy (principal); Z3A.00 Weeks of gestation of pregnancy not specified ==

== ENCOUNTER → 2024-10-18 | Outpatient (REF) | payer OTHER | LOC: M LAB REF 12:35 | PROVIDERS: ATTEND Obstetrics & Gynecology | DX: Z34.83 Encounter for supervision of other normal pregnancy, third trimester (principal) ==

== ENCOUNTER 2024-11-18 07:32 | Inpatient (IN) | payer BC, OTHER ==
[2024-11-18] VITALS (42 sets, daily range): BP systolic 80–151; BP diastolic 45–83; O2SAT 96–99
[~2024-11-18] VITALS: Ht 160 cm; Wt 88.2 kg
[2024-11-18] MEDS ORDERED: HOME MED LIST COMPLETE! XX SCH (08:00)
[2024-11-18] MEDS ORDERED: FAMO40TA3 PO (08:00)
[2024-11-18 09:13] LABS: HEMATOCRIT 34.3 % (36.0-47.0); HEMOGLOBIN 11.1 g/dl (12.0-15.5); MEAN CORPUSCULAR HEMOGLOBIN 26.5 pg (27.0-33.0); MEAN CORPUSCULAR HGB CONC 32.4 g/dl (32.0-36.5); MEAN CORPUSCULAR VOLUME 81.9 fl (80.0-96.0); PLATELET COUNT, AUTOMATED 308 10^3/uL (150-450); RED BLOOD COUNT 4.19 10^6/uL (4.00-5.40); WHITE BLOOD COUNT 9.6 10^3/uL (4.0-10.0)
[2024-11-18 09:59] LABS: HIV 1&2 SCREEN NEGATIVE (NEGATIVE)
[2024-11-18 10:06] LABS: HEPATITIS C VIRUS ABY INDEX 0.16 INDEX (<0.8)
[2024-11-18] MEDS: LR 1,000 ML IV SCH (10:07)
[2024-11-18] MEDS: OXYTOCIN DRIP 30 UNITS in IV 1 EA IV SCH ×3 (10:08→15:34)
[2024-11-18] MEDS ORDERED: FENTANYL 2MCG/ML ROPIVACAINE 0.2% IN 0.9% NACL 100ML IVBAG As Ordered ONE (10:35)
[2024-11-18] MEDS ORDERED: EPIDURAL/PCA KEYS XX PRN (10:40)
[2024-11-18] MEDS ORDERED: diphenhydrAMINE 50MG/ML VIAL IV PRN (10:40)
[2024-11-18] MEDS ORDERED: ONDANSETRON 4MG 2ML VIAL IV PRN (10:40)
[2024-11-18] MEDS ORDERED: NALOXONE INJ 0.4MG/1ML VIAL IV PRN (10:40)
[2024-11-18] MEDS ORDERED: LR 500 ML IV PRN (10:40)
[2024-11-18] MEDS: FENTANYL/ROPIVACAINE/NACL BAG 100 ML EPIDURAL SCH (11:10)
[2024-11-18] MEDS: ePHEDrine SULFATE 25 MG/5 ML(5MG/ML) SYRINGE IVP PRN (11:46)
[2024-11-18 13:56] LABS: CORD GAS ABE A -5.1; CORD GAS HCO3 A 24.3 MMOL/L; CORD GAS O2 SAT A 56.7 %; CORD GAS PCO2 A 62.2 mmHg; CORD GAS PH A 7.209 UNITS; CORD GAS PO2 A 28.8 mmHg; CORD GAS SBC A 19.3 MMOL/L; CORD GAS TCO2 A 26.2 MMOL/L
[2024-11-18 13:59] LABS: CORD GAS ABE V -3.1; CORD GAS HCO3 V 22.9 MMOL/L; CORD GAS O2 SAT V 74.4 %; CORD GAS PCO2 V 44.1 mmHg; CORD GAS PH V 7.333 UNITS; CORD GAS PO2 V 32.5 mmHg; CORD GAS SBC V 21.3 MMOL/L; CORD GAS TCO2 V 24.2 MMOL/L
[2024-11-18] MEDS ORDERED: IBUPROFEN 800 MG TAB PO PRN (14:05)
[2024-11-18] MEDS ORDERED: RHOGAM 300MCG (1500IU) INJ IM SCH (14:05)
[2024-11-18] MEDS ORDERED: DOCUSATE SODIUM 100MG CAPSULE PO PRN (14:05)
[2024-11-18] MEDS ORDERED: DIBUCAINE 1% OINTMENT 30GM TOP PRN (14:05)
[2024-11-18] MEDS ORDERED: ACETAMINOPHEN 325 MG TAB PO PRN (14:05)
[2024-11-18] MEDS: IBUPROFEN 600MG TAB PO PRN (15:39)
[2024-11-18] MEDS: METHYLERGONOVINE MALEATE 0.2 MG TAB PO PRN (18:23)
[2024-11-18] MEDS: ACETAMINOPHEN 500 MG TAB PO PRN (23:45)
[2024-11-19 04:00] VITALS: BP 126/62; O2SAT 97
[2024-11-19 05:46] VITALS: BP 118/60; O2SAT 96
[2024-11-19] MEDS: PRENATAL VITAMINS CHEWABLE TABLET PO SCH (09:00)
[2024-11-19 10:00] VITALS: BP 136/84; O2SAT 99
[2024-11-20] MEDS ORDERED: MEASLES,MUMPS,RUBELLA VACCINE INJ (MMR-II) SC.IMMUN ONE (09:00)
== END 2024-11-19 16:58 | disposition home or self-care (01) | DRG 560 ==
LOC: M LDI 07:32 → M OBS 16:26
PROVIDERS: ADMIT Obstetrics & Gynecology; ATTEND Obstetrics & Gynecology
PROC: 10E0XZZ Delivery of Products of Conception, External Approach (ICD-10-PCS; principal; 2024-11-18)
PROC: 10907ZC Drainage of Amniotic Fluid, Therapeutic from Products of Conception, Via Natural or Artificial Opening (ICD-10-PCS; 2024-11-18)
PROC: 3E033VJ Introduction of Other Hormone into Peripheral Vein, Percutaneous Approach (ICD-10-PCS; 2024-11-18)
DX: O48.0 Post-term pregnancy (principal); O69.82X0 Labor and delivery complicated by other cord entanglement, without compression, not applicable or unspecified; Z37.0 Single live birth; Z3A.40 40 weeks gestation of pregnancy